=== PATIENT | male | born 1975 | race Caucasian/White ===

== ENCOUNTER 2017-03-07 15:13 | Inpatient (IN) | payer BC ==
[~2017-03-07] VITALS: Ht 180.3 cm; Wt 99.8 kg
[2017-03-07 17:24] LABS: BASOPHILS # (AUTO) 0.2 (0.0-0.1); BASOPHILS % 1.2 % (0.0-1.0); EOSINOPHILS # (AUTO) 0.7 (0.0-0.4); EOSINOPHILS % 5.2 % (0.0-6.0); HEMATOCRIT 56.3 % (38.2-49.6); HEMOGLOBIN 18.7 g/dL (14.0-18.0); LYMPHOCYTES # (AUTO) 2.1 (1.0-3.2); LYMPHOCYTES % 16.1 % (18.0-39.1); MEAN CORPUSCULAR HEMOGLOBIN 34.1 pg (28-32); MEAN CORPUSCULAR HGB CONC 33.2 g/dL (31-35); MEAN CORPUSCULAR VOLUME 102.7 fL (81-99); MONOCYTES # (AUTO) 0.9 (0.2-0.8); MONOCYTES % 7.4 % (4.4-11.3); NEUTROPHILS # (AUTO) 8.9 (2.1-6.9); NEUTROPHILS % 69.6 % (38.7-80.0); PLATELET COUNT 222 x10e3/uL (140-360); RED BLOOD COUNT 5.48 x10e6/uL (4.3-5.7); RED CELL DISTRIBUTION WIDTH 15.1 % (11.7-14.4)
[2017-03-07 17:41] LABS: INR 1.04; PARTIAL THROMBOPLASTIN TIME 33.3 seconds (23.8-35.5); PROTHROMBIN TIME 14.1 seconds (11.9-14.5)
[2017-03-07 17:50] LABS: ALANINE AMINOTRANSFERASE 54 IU/L (0-55); ALBUMIN 3.8 g/dL (3.5-5.0); ALBUMIN/GLOBULIN RATIO 0.8 (0.8-2.0); ALKALINE PHOSPHATASE 110 IU/L (40-150); ANION GAP 14.3 mmol/L (8-16); BLOOD UREA NITROGEN 8 mg/dL (7-26); BUN/CREATININE RATIO 7 (6-25); CALCIUM 9.8 mg/dL (8.4-10.2); CARBON DIOXIDE 26 mmol/L (22-29); CHLORIDE 105 mmol/L (98-107); CREATINE KINASE 50 IU/L (30-200); CREATININE, SERUM 1.18 mg/dL (0.72-1.25); EST GLOMERULAR FILTRATION RATE > 60 ML/MIN (60-); GLUCOSE 78 mg/dL (74-118); POTASSIUM 4.3 mmol/L (3.5-5.1); SODIUM 141 mmol/L (136-145)
[2017-03-07 18:04] LABS: TROPONIN I 0.001 ng/mL (0-0.300)
[2017-03-07] MEDS ORDERED: ENOXAPARIN SODIUM INJ 100 MG/ML SYR SC STA (20:03)
[2017-03-07] MEDS ORDERED: NEXIUM20 MG PO (21:53)
[2017-03-07] MEDS ORDERED: ACETAMINOPHEN 325 MG TAB ONE (21:59)
[2017-03-07] MEDS ORDERED: SODIUM CHLORIDE FLUSH 10 ML SYR INJ PRN (22:00)
[2017-03-07] MEDS ORDERED: ACETAMINOPHEN 325 MG TAB PO PRN (22:00)
[2017-03-07] MEDS ORDERED: ONDANSETRON HCL INJ 2 MG/ML VIAL IV PRN (22:00)
[2017-03-08 03:26] LABS: CREATINE KINASE 44 IU/L (30-200)
[2017-03-08 03:33] LABS: TROPONIN I < 0.001 ng/mL (0-0.300)
[2017-03-08] MEDS: ENOXAPARIN SODIUM INJ 100 MG/ML SYR SC SCH ×2 (09:00→20:14)
[2017-03-08 09:33] LABS: BASOPHILS # (AUTO) 0.2 (0.0-0.1); BASOPHILS % 1.3 % (0.0-1.0); EOSINOPHILS # (AUTO) 0.9 (0.0-0.4); EOSINOPHILS % 8.2 % (0.0-6.0); HEMATOCRIT 51.8 % (38.2-49.6); HEMOGLOBIN 17.3 g/dL (14.0-18.0); LYMPHOCYTES # (AUTO) 1.7 (1.0-3.2); LYMPHOCYTES % 15.4 % (18.0-39.1); MEAN CORPUSCULAR HEMOGLOBIN 34.2 pg (28-32); MEAN CORPUSCULAR HGB CONC 33.4 g/dL (31-35); MEAN CORPUSCULAR VOLUME 102.4 fL (81-99); MONOCYTES # (AUTO) 0.8 (0.2-0.8); MONOCYTES % 7.3 % (4.4-11.3); NEUTROPHILS # (AUTO) 7.6 (2.1-6.9); NEUTROPHILS % 67.3 % (38.7-80.0); PLATELET COUNT 212 x10e3/uL (140-360); RED BLOOD COUNT 5.06 x10e6/uL (4.3-5.7); RED CELL DISTRIBUTION WIDTH 15.3 % (11.7-14.4)
[2017-03-08 09:56] LABS: ALANINE AMINOTRANSFERASE 40 IU/L (0-55); ALBUMIN 3.4 g/dL (3.5-5.0); ALBUMIN/GLOBULIN RATIO 0.9 (0.8-2.0); ALKALINE PHOSPHATASE 97 IU/L (40-150); ANION GAP 14.9 mmol/L (8-16); BLOOD UREA NITROGEN 9 mg/dL (7-26); BUN/CREATININE RATIO 8 (6-25); CARBON DIOXIDE 25 mmol/L (22-29); CHLORIDE 104 mmol/L (98-107); CREATININE, SERUM 1.14 mg/dL (0.72-1.25); EST GLOMERULAR FILTRATION RATE > 60 ML/MIN (60-); GLUCOSE 142 mg/dL (74-118); POTASSIUM 3.9 mmol/L (3.5-5.1); SODIUM 140 mmol/L (136-145)
[2017-03-08 10:57] LABS: CREATINE KINASE MB 0.4 ng/mL (0.00-5.00); TROPONIN I 0.001 ng/mL (0-0.300)
[2017-03-08] MEDS: NICOTINE 14 MG/EA PATCH TOP SCH (14:46)
[2017-03-08 14:59] VITALS: BP 132/84
[2017-03-08 17:13] VITALS: BP 112/59
--- NOTE | 2017-03-08 18:13 | History and Physical ---
PRIMARY CARE PHYSICIAN: Dr. Jairon Schmid. CHIEF COMPLAINT: Shortness of breath and leg discomfort. HISTORY OF PRESENT ILLNESS: This is a 41-year-old man with history of GERD who has not traveled, either flying or driving in the past 2 months or more, now developing right leg numbness/cramping for the past 2 weeks. Last week he started developing some intermittent shortness of breath. He went to his doctor and was found to have DVT. He was sent to the hospital for further management. Echocardiogram done in the emergency room showed normal left ventricular ejection fraction. He was diagnosed with DVT of the right leg and pulmonary embolism. PAST MEDICAL HISTORY: GERD and cigarette abuse. PAST SURGICAL HISTORY: Hernia repair, vasectomy and tonsillectomy. ALLERGIES: PER ELECTRONIC MEDICAL RECORDS. FAMILY HISTORY: The patient is adopted. SOCIAL HISTORY: The patient is . He has 3 children. He quit alcohol. He continues to smoke 1/2 pack of cigarettes per day. No illicit use. 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 MEDICATIONS: Per electronic medical records. REVIEW OF SYSTEMS: Denies any dizziness or chest pain. PHYSICAL EXAMINATION VITAL SIGNS: Reviewed. GENERAL APPEARANCE: A tired-appearing man resting in the bed. HEENT: Anicteric. Pupils responsive to light. No oral lesions. CARDIOVASCULAR: Normal S1 and S2. LUNGS: Moderate breath sounds, ABDOMEN: Soft and nontender. Nondistended. EXTREMITIES: Some edema of the right leg. SKIN: Dry. PSYCHIATRIC: Flat affect. LABS: Reviewed. MEDICATIONS: Reviewed. ASSESSMENT AND PLAN: A 41-year-old man. 1. Acute right DVT/PE. The patient is on Lovenox 100 q.12 h. Will get hematology to assist in further evaluation. He has unprovoked venous thromboembolism. Will need a workup to determine how long in duration of treatment will be needed. 2. Obesity. BMI 30.7. Will screen for diabetes. Obtain a lipid panel. 3. Cigarette abuse. Will start a nicotine patch. I have counseled on cigarette cessation. 4. Gastroesophageal reflux disease. Continue proton pump inhibitor. 5. Prophylaxis: Proton pump inhibitor while on anticoagulants. DISPOSITION: As described above. Will stabilize the clot and plan to transition home early next week. Job#: [id number]
[2017-03-08 20:00] VITALS: BP 134/89
[2017-03-09] VITALS (7 sets, daily range): BP systolic 122–133; BP diastolic 79–89
[2017-03-09] MEDS: PANTOPRAZOLE SOD 40 MG TABEC PO SCH (09:00)
[2017-03-09] MEDS: RIVAROXABAN 15 MG TABLET PO SCH ×2 (09:00→17:29)
[2017-03-09] MEDS: NICOTINE 14 MG/EA PATCH TOP SCH (09:00)
[2017-03-10] VITALS: BP 125/89
--- NOTE | 2017-03-10 03:38 | Consultation ---
DATE OF CONSULTATION: March 09, 2017 ATTENDING PHYSICIAN: Dr. Mukherjee Thank you for this consultation. This is a very pleasant 41-year-old gentleman with a past medical history of GERD, history of smoking admitted with worsening right lower extremity pain and swelling. His symptoms were associated with shortness of breath. He noticed those symptoms for the last 2 weeks. He went to see his primary care and had Dopplers that showed right deep vein thrombosis. He also had CT angio consistent with pulmonary embolism. Patient came to the hospital for further management. On direct questioning, patient admitted having trauma to the right leg during baseball practice. He denies any recent travel. No other risk factors identified bedsides smoking. PAST MEDICAL HISTORY: Includes GERD. PAST SURGICAL HISTORY: Hernia repair, vasectomy and tonsillectomy. ALLERGIES: REVIEWED NURSING NOTES. MEDICATIONS: Reviewed. SOCIAL HISTORY: Patient smokes half a pack a day. No smoking, alcohol or drugs. REVIEW OF SYSTEMS: As per HPI. FAMILY HISTORY: No family history of any blood clots. PHYSICAL EXAMINATION GENERAL: Alert, awake and communicative. HEENT: Normocephalic and atraumatic. Sclerae pink. Conjunctivae clear. NECK: Supple. CHEST: Clear to auscultation. CARDIOVASCULAR: Regular rate and rhythm. ABDOMEN: Soft and nontender. EXTREMITIES: No clubbing, cyanosis or edema. Patient has right extremity swelling. Tender on palpation. MUSCULOSKELETAL: Normal to inspection. Skin intact. LABS AND IMAGING: Reviewed. ASSESSMENT AND PLAN: Patient with multiple medical conditions. I am currently following for newly diagnosed right deep venous thrombosis and pulmonary embolism: Risk factors only include smoking and trauma during baseball practice. Patient also has pulmonary embolism. Patient currently on Lovenox. RECOMMENDATIONS: Hypercoagulable panel including protein A, protein C, prothrombin gene, antithrombin activity. Will also check antiphospholipid antibody. Discussed in detail with the patient about the different options of management. Chose to go for Xarelto. Will start the patient on Xarelto 15 mg twice a day. At current, duration of treatment for a month. Further management as per workup. Will continue remaining care. Talked about cigarette smoking cessation. Will monitor the patient closely. Continue current medications. Will continue remaining care. Will follow the patient. Job#: [id number] [place]
[2017-03-10 04:00] VITALS: BP 125/81
--- NOTE | 2017-03-10 07:24 | Progress Note ---
DATE: PCP: Dr. Jairon Schmid CONSULTANTS: Dr. Jonathon Borja, hematology. CHIEF COMPLAINT: Pulmonary embolism and right leg DVT. ALLERGIES: NO KNOWN DRUG ALLERGIES. DIET: Cardiac diet. SUBJECTIVE: No new issues other than the patient reports the right leg is less swollen and no pain. OBJECTIVE VITALS: Temperature 97.8, pulse 63, blood pressure 128/83, respirations 18, and satting 98% on room air, height 5 feet 11 inches, weight 220. BMI is 30.68. GENERAL: Patient is awake, alert and oriented times 3. Speech is clear. LUNGS: Clear to auscultation bilaterally with normal respiratory effort. Patient without shortness of breath. HEENT: Extraocular muscles are intact. Anicteric. ABDOMEN: Soft. Bowel sounds present. It is nontender and nondistended. CARDIOVASCULAR: Regular rate and rhythm. No murmur appreciated. NECK: Supple. Trachea midline. EXTREMITIES: Right calf appears slightly swollen compared to the left, although nontender. NEUROLOGICAL: Nonfocal. Patient is alert. MEDICATIONS: Please see MAR. No labs were done today. DIAGNOSES 1. Acute right leg deep venous thrombosis with pulmonary embolism: Patient was changed to Xarelto 15 mg p.o. b.i.d. by dogman/woman. 2. Obesity: Body mass index of 30.68. Continue to monitor. 3. Cigarette abuse: Discussed smoking cessation. 4. Gastroesophageal reflux disease: Continue on Protonix 40 mg daily. Will anticipate to discharge likely tomorrow. DICTATED BY AARON GERONIMO NP Job#: [id number] [place]
[2017-03-10 08:06] VITALS: BP 134/85
[2017-03-10] MEDS: RIVAROXABAN 15 MG TABLET PO SCH (08:39)
[2017-03-10] MEDS: NICOTINE 14 MG/EA PATCH TOP SCH (08:39)
[2017-03-10] MEDS: PANTOPRAZOLE SOD 40 MG TABEC PO SCH (08:39)
[2017-03-10] MEDS ORDERED: XARELTO15 MG PO (08:48)
[2017-03-10] MEDS ORDERED: NICODERM CQ1 EAC1 TOP (08:48)
[2017-03-10] MEDS ORDERED: XARELTO20 MG PO ×2 (08:48→10:56)
[2017-03-10 09:17] LABS: BASOPHILS # (AUTO) 0.2 (0.0-0.1); BASOPHILS % 1.6 % (0.0-1.0); EOSINOPHILS # (AUTO) 0.7 (0.0-0.4); EOSINOPHILS % 7.7 % (0.0-6.0); HEMATOCRIT 53.8 % (38.2-49.6); HEMOGLOBIN 17.9 g/dL (14.0-18.0); LYMPHOCYTES # (AUTO) 1.8 (1.0-3.2); LYMPHOCYTES % 18.8 % (18.0-39.1); MEAN CORPUSCULAR HEMOGLOBIN 33.8 pg (28-32); MEAN CORPUSCULAR HGB CONC 33.3 g/dL (31-35); MEAN CORPUSCULAR VOLUME 101.7 fL (81-99); MONOCYTES # (AUTO) 0.7 (0.2-0.8); MONOCYTES % 7.5 % (4.4-11.3); NEUTROPHILS # (AUTO) 6.2 (2.1-6.9); PLATELET COUNT 216 x10e3/uL (140-360); RED BLOOD COUNT 5.29 x10e6/uL (4.3-5.7); RED CELL DISTRIBUTION WIDTH 14.7 % (11.7-14.4)
[2017-03-10 09:23] VITALS: BP 134/85
[2017-03-10 09:39] LABS: ANION GAP 13.9 mmol/L (8-16); BLOOD UREA NITROGEN 9 mg/dL (7-26); BUN/CREATININE RATIO 7 (6-25); CALCIUM 9.4 mg/dL (8.4-10.2); CARBON DIOXIDE 25 mmol/L (22-29); CHLORIDE 106 mmol/L (98-107); CREATININE, SERUM 1.26 mg/dL (0.72-1.25); EST GLOMERULAR FILTRATION RATE > 60 ML/MIN (60-); GLUCOSE 90 mg/dL (74-118); POTASSIUM 3.9 mmol/L (3.5-5.1); SODIUM 141 mmol/L (136-145)
--- NOTE | 2017-03-10 14:50 | Progress Note ---
DATE: Patient seen and examined today. Patient appears better. No worsening anemia noted. PHYSICAL EXAMINATION GENERAL: Alert, awake and communicative. HEENT: Normocephalic and atraumatic. Sclerae are pink. Conjunctivae are clear. NECK: Supple. CHEST: Decreased breath sounds at the bases. CARDIOVASCULAR: Regular rate and rhythm. ABDOMEN: Soft. EXTREMITIES: No edema. LABS AND IMAGING: Reviewed. ASSESSMENT AND PLAN: Patient has history of new diagnosis of deep venous thrombosis. The patient also has erythrocytosis. The patient can be started on Xarelto. Hypercoagulable workup is pending. RECOMMENDATIONS 1. Will follow up hypercoagulable panel. 2. The patient will need more workup for the erythrocytosis. 3. Possibility of reactive erythrocytosis because of smoking. 4. Will check erythropoietin JAK2 mutation and ferritin level. 5. Further recommendations as per workup. Will follow the patient. Job#: [id number]
--- NOTE | 2017-03-11 11:48 | Discharge Summary ---
ADMISSION DIAGNOSES 1. Acute right deep venous thrombosis/pulmonary embolism. 2. Obesity. 3. Cigarette abuse. 4. Gastroesophageal reflux disease. DISCHARGE DIAGNOSES 1. Acute right deep venous thrombosis/pulmonary embolism. 2. Obesity. 3. Cigarette abuse. 4. Gastroesophageal reflux disease. HISTORY: Patient has a history of GERD, cigarette abuse, hernia repair, vasectomy and tonsillectomy. HOSPITAL COURSE: A 41-year-old male who had not traveled recently or driven far in the last 2 months or more, is now developing right leg cramping for the last 2 weeks. Last week, he started developing some intermittent shortness of breath as well. He went to his doctor and was found to have a DVT. At the hospital, an echo was done which showed normal EF. He was diagnosed with DVT of the right leg and pulmonary embolism. Hematology was consulted and patient was started on Lovenox 100 mg q.12 hours. Patient was screened for diabetes, which was ruled out. Patient was started on a nicotine patch for cigarette abuse. Per hematology, the patient is to discharge home with Xarelto 15 mg b.i.d. times 3 weeks, then 20 mg q.day times 1 year. Patient is to follow up with hematology in 1 week. Vital signs stable. Patient is no longer having any pain, cramping, or shortness of breath and is ready to return home to his family. DICTATED BY: ROSELINE COUCH NP JESSICA BARKLEY MD Job#: [id number] [place]
--- NOTE | 2017-03-12 17:47 | Progress Note ---
DATE: NO DICTATION. 2 seconds. Job#: [id number]
== END 2017-03-10 10:57 | disposition home or self-care (01) | DRG 299 ==
LOC: ER 15:13 → ERHOLD 21:55 → MED/SURG 03-08 12:04
PROVIDERS: ADMIT Internal Medicine; ATTEND Internal Medicine
DX: I82.401 Acute embolism and thrombosis of unspecified deep veins of right lower extremity (principal); I26.99 Other pulmonary embolism without acute cor pulmonale; D75.1 Secondary polycythemia; E66.9 Obesity, unspecified; Z68.30 Body mass index [BMI] 30.0-30.9, adult; F17.200 Nicotine dependence, unspecified, uncomplicated; K21.9 Gastro-esophageal reflux disease without esophagitis
CPT/HCPCS: 36415; 80048; 80053; 80061; 82550; 82553; 83036; 84484; 85025; 85300; 85302; 85303; 85305; 85306; 85379; 85597; 85598; 85610; 85613; 85730; 85732; 86146; 86147; 86148; 86849; 87400; 93005; 93306; 96372; 99284; J1650